=== PATIENT | female | born 1995 | race Caucasian/White ===

== ENCOUNTER 2019-04-30 05:55 | Inpatient (IN) | payer OTHER ==
[2019-04-30] MEDS ORDERED: ELECTROLYTE-148 SOLN 500 ML IV ONE ×2 (06:00→08:49)
[2019-04-30] MEDS ORDERED: CITRIC ACID/SODIUM CITRATE 30 ML UNIT-DOSE CUP PO ONE ×2 (06:00→08:49)
[2019-04-30] MEDS ORDERED: ELECTROLYTE-148 SOLN 1,000 ML IV SCH (06:30)
[2019-04-30 06:48] VITALS: BMI 48.7
[2019-04-30] MEDS ORDERED: OXYTOCIN 20 UNITS in 0.9% NS 20 UNIT/1,000 ML INFUS.BAG IV ONE (07:50)
[2019-04-30] MEDS ORDERED: morphine SULFATE/PF 0.5 MG/ML (2cc Syringe - QUVA) ONE (07:51)
[2019-04-30] MEDS ORDERED: PHENYLEPHRINE HCL 10 MG/1 ML SINGLE DOSE VIAL ONE (07:52)
[2019-04-30] MEDS ORDERED: OXYTOCIN 20 UNITS in 0.9% NS 40 UNIT/2,000 ML INFUS.BAG IV ONE (07:54)
[2019-04-30] MEDS ORDERED: SODIUM CHLORIDE 0.9% P/F 10 ML VIAL IJ ONE (08:00)
[2019-04-30] MEDS ORDERED: ceFAZolin SODIUM 1 GM VIAL ONE (08:00)
--- NOTE | 2019-04-30 08:48 | HP ---
Past Medical History - Primary Care Physician PCP:: James Davila - Admission Chief Complaint: 23yo P1 with at EGA 40w2d admitted for repeat C/S. 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: No: Alzheimer's, CVA, Dementia, Migraine, Multiple Sclerosis, Peripheral Neuropathy, Parkinson's, Seizure, Syncope, TIA, Vertigo, Other Cardiovascular: No: AFIB, Aneurysm, Aortic Insufficiency, Aortic Stenosis, CAD, CHF, Deep Vein Thrombosis, HTN, Hyperlipdemia, [place], Mitral Insufficiency, Mitral Stenosis, Murmur, Pulmonary Hypertension, Other Pulmonary: No: Asthma, Bronchitis, Cancer, COPD, O2 Dependent, Pneumonia, Previously Intubated, Pulmonary Embolus, Pulmonary Fibrosis, Sleep Apnea, Other Gastrointestinal: No: Ascites, Cancer, Constipation, Crohn's Disease, Diverticulitis, Diverticulosis, Esophageal Varices, Gastritis, GERD, GI Bleed, Hemorrhoids, Hiatal Hernia, Inflamatory Bowel Disease, Irritable Bowel Disease, Pancreatitis, Peptic Ulcer Disease, Ulcerative Colitis, Other Hepatobiliary: No: Cirrhosis, Cholelithiasis, Cholecystitis, Choledocholithiasis , Hepatitis A, Hepatitis B, Hepatitis C, Other Renal/: No: Renal Failure, Renal Inusuff, BPH, Cancer, Hematuria, Hemodialysis , Neurogenic Bladder, Renal Calculi, UTI, Other Reproductive: No: Ectopic , Endometriosis, Fibroids, PID, Polycystic Ovary Syndrome, Postmenopausal, Other ...: 2 ...Para: 1 ...Term: 1 ...: 0 ...Spon : 0 ...Induced : 0 ...Multiple Gestation: 0 ...EDC by [facility]: 04/28/19 Heme/Onc: No: Anemia, B12 Deficiency, Bleeding Disorder, Cancer, Current Chemotherapy, Current Radiation Therapy, Hemochromatosis, Hypercoaguable State, Myeloproliferative Synd, Sickle Cell Disease, Sickle Cell Trait, Thrombocytopenia, Other Psych: No: Addictions, Anxiety, Bipolar, Depression, Panic, Psychosis, Schizophrenia, Other Musculoskeletal: No: Bursitis, Chronic low back pain, Hemiparesis, Hemiplegia, Osteoarthritis, Paraplegia, Other Rheumatology: No: Fibromyalgia, Gout, Lupus, Rheumatoid Arthritis, Sarcoidosis, Vasculitis, Other ENT: No: Allergic Rhinitis, Sinusitis, Other Endocrine: No: [place]'s Disease, Chaz's Disease, Diabetes Insipidus, Diabetes Mellitus, Hyperparathyroidism, Hyperthyroidism, Hypothyroidism, Osteopenia, SIADH, Other Dermatology: No: Basal Cell, Cellulitis, Eczema, Melanoma, Psoriasis, Squamous Cell, Other - Past Surgical History Past Surgical History: Yes: Cholecystectomy, Hx Myomectomy: No Hx Transabdominal Cerclage: No - Smoking History Smoking history: Never smoked Have you smoked in the past 12 months: No - Alcohol/Substance Use Hx Alcohol Use: No History of Substance Use: reports: None - Social History Usual Living Arrangement: Yes: With Spouse, With Significant Other ADL: Independent History of Recent Travel: No Home Medications - Allergies Allergies/Adverse Reactions: Allergies Allergy/AdvReac Type Severity Reaction Status Date / Time No Known Drug Allergies Allergy Verified 04/30/19 06:19 - Home Medications Home Medications: Ambulatory Orders Pnv No.95/Ferrous Fum/Folic AC [ Vitamin Tablet] 1 each PO DAILY Family Disease History - Family Disease History Family Disease History: Diabetes: Mother Review of Systems - Review of Systems Constitutional: reports: No Symptoms Eyes: reports: No Symptoms HENT: reports: No Symptoms Neck: reports: No Symptoms Cardiovascular: reports: No Symptoms Respiratory: reports: No Symptoms Gastrointestinal: reports: No Symptoms Genitourinary: reports: No Symptoms Breasts: reports: No Symptoms Reported Musculoskeletal: reports: No Symptoms Integumentary: reports: No Symptoms Neurological: reports: No Symptoms Endocrine: reports: No Symptoms Hematology/Lymphatic: reports: No Symptoms Psychiatric: reports: No Symptoms Pain Intensity: 0 Physical Exam - Maternity Vital Signs: Vital Signs Temperature 98.3 F 04/30/19 06:15 Pulse Rate 91 H 04/30/19 06:15 Respiratory Rate 20 04/30/19 06:15 Blood Pressure 113/68 04/30/19 06:15 O2 Sat by Pulse Oximetry (%) Constitutional: Yes: Well Nourished, No Distress, Calm Eyes: Yes: WNL, Conjunctiva Clear, EOM Intact HENT: Yes: WNL, Atraumatic, Normocephalic Neck: Yes: WNL, Supple, Trachea Midline Cardiovascular: Yes: WNL, Regular Rate and Rhythm Lungs: Clear to auscultation, Normal air movement Breast(s): Yes: WNL - Abdominal Exam/OB Fundal Height: 42 Number of Fetuses: Single Presentation: Vertex Contractions: No Intensity: Unaware Heart Rate (range): 135 Heart Rate Location: Midline Category: I Accelerations: Uniform Decelerations: None - Vaginal Exam/OB Vaginal Bleediing: No Speculum Exam: No Dilatation (cm): 0 Effacement (%): 0 Presentation: Vertex/Position Station: -4 - Physical Exam Musculoskeletal: Yes: WNL Hemorrhage Risk Assessment - Risk Factors Medium Risk Factors: Yes: Prior , uterine surgery,or multiple laparotomies, Obesity (BMI >40) Risk Score: 2 Risk Level: High Risk Imaging - Results Ultrasound: Report Reviewed Assessment/Plan 23yo P1 with at EGA 40w2d admitted for repeat C/S. We discussed the risks and benefits of C/S at length, including but not limited to scarring, pain , bleeding, infection, injury to underlying organs and structures, need for additional surgery to repair/treat any problems or complications, complications/injuries, etc. The pt verbalized her understanding and requested to proceed with surgery. The pt is aware that all surgeries have risks and no guarantees can be provided.
[2019-04-30] MEDS ORDERED: IBUPROFEN 800 MG/8 ML IJ IVPB PRN (08:51)
[2019-04-30] MEDS ORDERED: WITCH HAZEL 50% (TUCKS) 40 PAD/JAR PAD TP PRN (08:51)
[2019-04-30] MEDS ORDERED: oxyCODONE HCL 5 MG TABLET PO PRN (08:51)
[2019-04-30] MEDS ORDERED: METHYLERGONOVINE MALEATE 0.2 MG/1 ML AMP IM PRN (08:51)
[2019-04-30] MEDS ORDERED: OXYTOCIN 20 UNITS in 0.9% NS 20 UNIT/1,000 ML INFUS.BAG IV SCH (09:00)
[2019-04-30] MEDS ORDERED: OXYTOCIN 10 UNITS/ML VIAL ONE (09:14)
[2019-04-30] MEDS ORDERED: KETOROLAC TROMETHAMINE 30 MG/1 ML VIAL ONE (09:31)
[2019-04-30] MEDS ORDERED: CEFAZOLIN 1 GM in DEXTROSE 5%-WATER - 50 ML IVPB SCH ×2 (10:00→18:00)
[2019-04-30] MEDS ORDERED: ENOXAPARIN NA (PORCINE) 40 MG/0.4 ML DISP.SYRIN SQ SCH (10:00)
[2019-04-30] MEDS ORDERED: PRENATAL VITAMINS W/ FOLIC ACID TABLET (FP) PO SCH (10:00)
[2019-04-30] MEDS ORDERED: morphine SULFATE/PF 0.5 MG/ML (2cc Syringe - QUVA) SPIN ONE (10:28)
[2019-04-30] MEDS ORDERED: IBUPROFEN 600 MG TABLET (FP) PO PRN (10:28)
[2019-04-30] MEDS ORDERED: ONDANSETRON 4 MG/2 ML VIAL IVPUSH PRN (10:28)
[2019-04-30] MEDS: SIMETHICONE 80 MG TAB.CHEW (FP) PO PRN (23:56)
[2019-04-30] MEDS: ACETAMINOPHEN 325 MG TABLET (FP) PO PRN (23:56)
[2019-05-01] MEDS: CEFAZOLIN 1 GM/D5W 1 GM/50 ML BAG IVPB SCH ×2 (01:25→09:21)
--- NOTE | 2019-05-01 06:56 | PN ---
Post Progress Note - Subjective Subjective: No complaints. Doing well. Ambulating. Voiding w/o difficulties Asymptomatic for anemia. Post Day: 1 Type of Delivery: Primary C/S Vital Signs: Vital Signs Temperature 98 F 05/01/19 05:00 Pulse Rate 60 05/01/19 05:00 Respiratory Rate 18 05/01/19 06:00 Blood Pressure 120/58 L 05/01/19 05:00 O2 Sat by Pulse Oximetry (%) 99 04/30/19 11:30 Breast Exam: Yes: Soft Uterus: Yes: Fundus Firm, Fundus below umbilicus, Non-tender Incision: Yes: Dressing dry and intact Abdomen/GI: Yes: Abdomen soft, Tolerating PO Lochia: Yes: Rubra Lochia, amount: Small Extremities: Yes: Calves non-tender Perineum: Yes: Intact Activity: Ambulating Assessment/Plan 23yo P2 s/p repeat LT C/S, doing well stable, afebrile. The pt is asymptomatic for s/sxs of anemia. care instructions reviewed. Continue routine postop care. Ambulation encouraged..
[2019-05-01] MEDS: ACETAMINOPHEN 325 MG TABLET (FP) PO PRN ×3 (07:23→18:10)
[2019-05-01] MEDS: IBUPROFEN 600 MG TABLET (FP) PO PRN ×3 (07:23→18:10)
[2019-05-01] MEDS: SIMETHICONE 80 MG TAB.CHEW (FP) PO PRN ×3 (07:24→18:10)
[2019-05-01 08:04] LABS: BASO % 0.3 % (0-2.0); EOS % 3.5 % (0-4.5); HEMATOCRIT 29.7 % (32.4-45.2); HEMOGLOBIN 9.9 GM/dL (10.7-15.3); LYMPH % 16.3 % (8-40); MCHC 33.2 g/dl (32.0-36.0); MEAN CELL VOLUME 87.3 fl (80-96); MEAN PLT VOLUME 8.5 fl (7.5-11.1); NEUT % 72.9 % (42.8-82.8); PLATELET COUNT 157 K/MM3 (134-434); RDW 16.2 % (11.6-15.6)
[2019-05-01] MEDS ORDERED: BISACODYL 10 MG SUPP.RECT RC PRN (08:51)
[2019-05-01] MEDS: PRENATAL VITAMINS W/ FOLIC ACID TABLET (FP) PO SCH (09:23)
[2019-05-01] MEDS: ENOXAPARIN NA (PORCINE) 40 MG/0.4 ML DISP.SYRIN SQ SCH (09:23)
--- NOTE | 2019-05-01 11:21 | PN ---
Progress Note (short form) - Note Progress Note: Anesthesia POD#1 S/P Repeat under Spinal and Duramorph VSS,pain is bearable,legs are strong,no N/V No complications to anesthesia seen. Tamiko Nguyen MD.
--- NOTE | 2019-05-01 16:34 | OP ---
Operative Note - Note: Operative Date: 04/30/19 Pre-Operative Diagnosis: at EGA 40w2d, prior C/S, morbid obesity Operation: Repeat LT C/S Findings: Live baby boy in vtx presentation, no meconium in amniotic fluid, normal ut/ tubes/ovaries. 9-9. Post-Operative Diagnosis: Same as Pre-op Surgeon: James Davila Classified Advertising Manager: Ankit Perez Anesthesiologist/LOOM STARTER: Hanny Fitch Anesthesia: Spinal Specimens Removed: Placenta Estimated Blood Loss (mls): 700 Drains & Tubes with Location: Don catheter Drains, Volume Out (mls): 200 Blood Volume Replaced (mls): 0 Fluid Volume Replaced (mls): 2,000 Operative Report Dictated: Yes
--- NOTE | 2019-05-01 21:20 | OP ---
DATE OF OPERATION: 04/30/2019 PREOPERATIVE DIAGNOSIS: with estimated gestational age of 40 weeks 2 days, previous section, morbid obesity. POSTOPERATIVE DIAGNOSIS: with estimated gestational age of 40 weeks 2 days, previous section, morbid obesity. PROCEDURE: Repeat low-transverse section via Pfannenstiel skin incision. SURGEON: James Davila MD FILLER SHREDDER HELPER: Ankit Perez MD ANESTHESIOLOGIST: Hanny Fitch MD ANESTHESIA: Spinal. COMPLICATIONS: None. ESTIMATED BLOOD LOSS: 700 mL. URINE OUTPUT: 200 mL of clear urine at the end of the procedure. IV FLUIDS: 2000 mL. PATHOLOGY: Placenta. FINDINGS: Live baby boy in vertex presentation. No meconium in amniotic fluids. Normal uterus, normal fallopian tubes, normal ovaries. Apgars 9 and 9. Baby's weight 3657 g. PROCEDURE: The patient was met preoperatively. Risks, benefits, and alternatives of surgery were discussed in detail. All questions were answered. The consent form was reviewed and discussed. The patient verbalized her understanding and requested to proceed with the surgery. The patient was brought to the OR with IV running. She was placed on the surgical table in sitting position. Spinal anesthesia was achieved without complications. The patient was then placed in a supine position with a leftward tilt. A Don catheter was inserted and left to drain to gravity. The patient was prepped and draped in the usual sterile fashion. A timeout procedure was conducted as per standard protocol. The surgeons then proceeded with the operation. A Pfannenstiel skin incision was made with the knife along the prior scar. The incision was extended to the fascia using a knife. A judicious use of cautery was utilized to maintain hemostasis. The fascia was incised in the midline. The incision was extended bilaterally using Dotson scissors. The fascia was dissected away from rectus muscles superiorly and inferiorly using sharp and blunt dissection. The rectus muscles were in the midline using blunt dissection. The peritoneum was identified and entered sharply. The peritoneal incision was then extended superiorly and inferiorly using Metzenbaum scissors. The bladder peritoneum was incised over the lower uterine segment. The bladder was then dissected away from the lower uterine segment using sharp dissection. The bladder was reflected downwards using a Denise retractor. The uterus was incised transversely in the lower uterine segment. The uterine incision was then extended bilaterally using bandage scissors. The amniotic bag was ruptured and clear amniotic fluid was noted. The baby was delivered from vertex presentation without complications. The baby was crying immediately and the umbilical cord was clamped and cut. The baby was handed to the awaiting telecine operator. The placenta was then expressed manually without complications. The uterus was cleared of all clots and debris. The uterus appeared to be well contracted. The uterus was exteriorized for better visualization. The uterine incision was repaired using a 0 Biosyn suture with a running and locking stitch. Good hemostasis was maintained. The uterine incision was then imbricated using a secondary layer of closure with a 0 Biosyn suture. Once again good hemostasis was assured. The uterus was then re-placed into the abdominal cavity. Good hemostasis was noted. The gutters were cleared of blood with moist laparotomy laps. The operative site was irrigated using copious amounts of normal saline. Once the saline was aspirated, good hemostasis was noted. The parietal peritoneum was then closed using a 2-0 chromic suture. The rectus muscles were approximated in the midline using several interrupted 2-0 chromic sutures. The fascia was closed using a 0 Vicryl suture with a running stitch. Good approximation and hemostasis were noted. The subcutaneous fat and Quyen fascia were approximated using several interrupted 0 Vicryl sutures. The skin was closed with a 4-0 Vicryl suture using a subcutaneous stitch. Sponge, lap, and needle counts were correct. The patient tolerated the procedure well and she was transferred to recovery room in stable condition. Yohan LUO/[id number]
[2019-05-02] MEDS: ACETAMINOPHEN 325 MG TABLET (FP) PO PRN ×4 (00:08→20:36)
[2019-05-02] MEDS: SIMETHICONE 80 MG TAB.CHEW (FP) PO PRN ×4 (00:08→20:35)
[2019-05-02] MEDS: IBUPROFEN 600 MG TABLET (FP) PO PRN ×4 (00:09→20:35)
--- NOTE | 2019-05-02 07:48 | PN ---
Post Progress Note - Subjective Subjective: Patient without acute complaints. Tolerating PO without nausea or vomiting, ambulating and voiding Passing flatus Desires to breastfeed Post Day: 2 Type of Delivery: Primary C/S Vital Signs: Vital Signs Temperature 98.4 F 05/01/19 22:00 Pulse Rate 70 05/01/19 22:00 Respiratory Rate 18 05/01/19 22:00 Blood Pressure 123/68 05/01/19 22:00 O2 Sat by Pulse Oximetry (%) 99 04/30/19 11:30 Breast Exam: Yes: Soft Uterus: Yes: Fundus Firm Incision: Yes: Sutures intact. No: Redness, Oozing Abdomen/GI: Yes: Abdomen soft, Abdominal Distention, Tender (mild incisional), Passing flatus, Tolerating PO Lochia: Yes: Rubra Lochia, amount: Small Extremities: Yes: Calves non-tender, Edema (trace) Activity: Ambulating - Labs Labs: CBC WBC 8.0 K/mm3 (4.0-10.0) 05/01/19 06:56 RBC 3.40 M/mm3 (3.60-5.2) L 05/01/19 06:56 Hgb 9.9 GM/dL (10.7-15.3) L 05/01/19 06:56 Hct 29.7 % (32.4-45.2) L 05/01/19 06:56 MCV 87.3 fl (80-96) 05/01/19 06:56 MCH 29.0 pg (25.7-33.7) 05/01/19 06:56 MCHC 33.2 g/dl (32.0-36.0) 05/01/19 06:56 RDW 16.2 % (11.6-15.6) H 05/01/19 06:56 Plt Count 157 K/MM3 (134-434) D 05/01/19 06:56 MPV 8.5 fl (7.5-11.1) 05/01/19 06:56 Absolute Neuts (auto) 5.8 K/mm3 (1.5-8.0) 05/01/19 06:56 Neutrophils % 72.9 % (42.8-82.8) 05/01/19 06:56 Lymphocytes % 16.3 % (8-40) 05/01/19 06:56 Monocytes % 7.0 % (3.8-10.2) 05/01/19 06:56 Eosinophils % 3.5 % (0-4.5) D 05/01/19 06:56 Basophils % 0.3 % (0-2.0) 05/01/19 06:56 Nucleated RBC % 0 % (0-0) 05/01/19 06:56 Assessment/Plan 23 yo POD # 2 s/p R CD, afebrile, vital signs stable, doing well 1. Continue routine postoperative care. 2. Encourage ambulation and incentive spirometer use 3. Continue oral pain medication 4. Anticipate discharge home postoperative day #3 or #4
[2019-05-02] MEDS: PRENATAL VITAMINS W/ FOLIC ACID TABLET (FP) PO SCH (09:07)
[2019-05-02] MEDS: ENOXAPARIN NA (PORCINE) 40 MG/0.4 ML DISP.SYRIN SQ SCH (09:07)
[2019-05-02] MEDS ORDERED: SENNOSIDES/DOCUSATE COMBO (SENNA PLUS) TABLET (UD) PO PRN (22:00)
[2019-05-03] MEDS: IBUPROFEN 600 MG TABLET (FP) PO PRN ×2 (02:51→11:13)
[2019-05-03] MEDS: SIMETHICONE 80 MG TAB.CHEW (FP) PO PRN ×2 (02:52→11:15)
[2019-05-03] MEDS: ACETAMINOPHEN 325 MG TABLET (FP) PO PRN ×2 (02:52→11:14)
--- NOTE | 2019-05-03 06:59 | PN ---
Progress Note (short form) - Note Progress Note: pod 3 s/p c/s , no c/o , voids ok, no excess vaginal bleeding CBC, BMP 05/01/19 06:56 Last Vital Signs Temp Pulse Resp BP Pulse Ox 98.6 F 78 18 121/78 99 05/02/19 21:43 05/02/19 21:43 05/02/19 21:43 05/02/19 21:43 04/30/19 11:30 abdomen soft, no distension, no cva uterus firm , non tender lochia mild no calf tenderness plan ambulate , cbc
--- NOTE | 2019-05-03 07:46 | DS ---
Physical Exam-CURBING STONECUTTER Vital Signs: Vital Signs Temperature 98.6 F 05/02/19 21:43 Pulse Rate 78 05/02/19 21:43 Respiratory Rate 18 05/02/19 21:43 Blood Pressure 121/78 05/02/19 21:43 O2 Sat by Pulse Oximetry (%) 99 04/30/19 11:30 Constitutional: Yes: Well Nourished, No Distress, Calm Eyes: Yes: WNL, Conjunctiva Clear, EOM Intact HENT: Yes: WNL, Atraumatic, Normocephalic Neck: Yes: WNL, Supple, Trachea Midline Cardiovascular: Yes: WNL, Regular Rate and Rhythm Respiratory: Yes: WNL, Regular, CTA Bilaterally Gastrointestinal: Yes: WNL ...Rectal Exam: Yes: WNL Renal/: Yes: WNL ....Post : Yes: Uterus firm, Uterus non-tender, Slight lochia rubra Breast(s): Yes: WNL Musculoskeletal: Yes: WNL Extremities: Yes: WNL Edema: LLE: Trace, RLE: Trace Integumentary: Yes: WNL Wound/Incision: Yes: Clean/Dry, Well Approximated, Sutures Intact Neurological: Yes: WNL, Alert, Oriented ...Motor Strength: WNL Psychiatric: Yes: WNL, Alert, Oriented Labs: CBC, BMP 05/01/19 06:56 Delivery - Delivery Section: Repeat, Low Flap Transverse Type of Anesthesia: Spinal Episiotomy/Laceration: None EBL (cc): 700 Delivery, Single - Stages of Labor Date of Delivery: 04/30/19 Time of Delivery: 09:26 Time Placenta Delivered: 09:27 Placenta: Yes: Expressed - Condition of Infant Bridge Teacher/Structurer Present: Yes Name: Manuel Paige Infant Gender: Male Weight: 8 lb 1 oz Position: Left, OT Total Hours ROM (Hrs/Mins): 0/2 - 1 Minute Total Score: 9 5 Minutes Total Score: 9 - [place] Feeding Plan Initial Plan: Elected not to breastfeed exclusively throughout hospitalization Discharge Summary Reason For Visit: SCHEDULED Procedures: Principal: REPEAT lst C/S Hospital Course: NO COMPLICATION Condition: Good - Instructions Diet, Activity, Other Instructions: IF FEVER, HEAVY VAGINAL BLEEDING , SEVERE PAIN CALL MD FOLLOW UP OFFICE 1 WEEK Referrals: James Davila MD [Staff Physician] - Disposition: HOME - Home Medications Comprehensive Discharge Medication List: Ambulatory Orders Pnv No.95/Ferrous Fum/Folic AC [ Vitamin Tablet] 1 each PO DAILY Ibuprofen [Motrin -] 600 mg PO TID #90 tablet 05/03/19
[2019-05-03 08:43] VITALS: BP 122/81; PULSE 72; TEMP 98.4
[2019-05-03 08:55] LABS: BASO % 0.4 % (0-2.0); EOS % 3.3 % (0-4.5); HEMATOCRIT 31.7 % (32.4-45.2); HEMOGLOBIN 10.5 GM/dL (10.7-15.3); LYMPH % 19.7 % (8-40); MCH 29.1 pg (25.7-33.7); MCHC 33.2 g/dl (32.0-36.0); MEAN CELL VOLUME 87.6 fl (80-96); MEAN PLT VOLUME 8.3 fl (7.5-11.1); MONO % 6.6 % (3.8-10.2); PLATELET COUNT 220 K/MM3 (134-434); RBC 3.62 M/mm3 (3.60-5.2); RDW 16.2 % (11.6-15.6)
[2019-05-03] MEDS: PRENATAL VITAMINS W/ FOLIC ACID TABLET (FP) PO SCH (09:10)
[2019-05-03] MEDS: ENOXAPARIN NA (PORCINE) 40 MG/0.4 ML DISP.SYRIN SQ SCH (09:10)
--- NOTE | 2019-05-06 17:51 | PATH ---
Surgical Pathology Report Patient Name: AMARILIS BOBBY Med. Rec. 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 Specimen(s) Received PLACENTA Clinical History , 40.2 weeks for repeat Final Diagnosis PLACENTA, SECTION: 528 G THIRD TRIMESTER PLACENTA WITH TRIVASCULAR UMBILICAL CORD AND UNREMARKABLE PLACENTAL MEMBRANES. Electronically Signed Vanessa Rayo M.D. Gross Description The specimen is received fresh labeled placenta and is a 528 gram, 16.5 x 14.0 x 3.4 cm. placenta with attached membranes and umbilical cord. The attached membranes are haas, thick, cloudy and insert marginally. The umbilical cord measures 15 cm. in length and averages 1 cm. in diameter. The cord inserts eccentrically, 1.5 cm. to the nearest margin. No true knots or strictures are identified. Cut surface of the umbilical cord reveals 3 vessels. The surface is rojas-blue with minimal fibrin deposition and appropriate caliber vessels. The maternal surface is red-brown with focal defects. Sectioning reveals red-brown, spongy parenchyma. No lesions are identified. Shuttle Repairer sections are submitted in three cassettes as follows: 1- membrane rolls and umbilical cord; 2-3- full thickness sections of placenta. /05/03/2019 saudi05/03/2019
== END 2019-05-03 13:55 | disposition home or self-care (01) | DRG 540 ==
LOC: JLDR 05:55 → J3W 11:58
PROVIDERS: ADMIT Obstetrics & Gynecology; ATTEND Obstetrics & Gynecology
PROC: 10D00Z1 Extraction of Products of Conception, Low, Open Approach (ICD-10-PCS; principal; 2019-05-01)
DX: O34.211 Maternal care for low transverse scar from previous cesarean delivery (principal); E66.01 Morbid (severe) obesity due to excess calories; O99.213 Obesity complicating pregnancy, third trimester; O48.0 Post-term pregnancy; O99.02 Anemia complicating childbirth; D64.9 Anemia, unspecified; Z3A.40 40 weeks gestation of pregnancy; Z37.0 Single live birth
CPT/HCPCS: 36415; 85025; 88307-TC